=== PATIENT | female | born 1975 | race Caucasian/White ===

== ENCOUNTER 2019-10-14 08:55 | Day surgery (SDC) | payer BC ==
[2019-10-13 11:41] LABS: BLOOD UREA NITROGEN,BUN 12 mg/dL (7.0-18.0); CARBON DIOXIDE,CO2 29.4 mmol/L (21.0-32.0); CHLORIDE,CL 104 mmol/L (98-107); GLUCOSE RANDOM 66 mg/dL (74-106); POTASSIUM,K 4.3 mmol/L (3.5-5.1); SODIUM,NA 140 mmol/L (136-145)
[~2019-10-14 08:55] MED LIST: Lactated Ringers 1,000 ML IV SCH; Sodium Chloride 0.9% 10 ML SDV IV PRN; Sodium Chloride 0.9% 10 ML Syringe FLUSH PRN; Sodium Chloride 0.9% 2.5 ML Syringe FLUSH PRN; ceFAZolin 2 GM in Premix Bag 1 BAG IV ONE
--- NOTE | 2019-10-14 09:48 | PCM.PREANE ---
Preanesthetic Assessment - Anesthesia/Transfusion/Family Hx Anesthesia History: Prior Anesthesia Without Reaction Family History of Anesthesia Reaction: No Transfusion History: No Prior Transfusion(s) Intubation History: Unknown - Review of Systems General: No Symptoms Pulmonary: No Symptoms Cardiovascular: No Symptoms Gastrointestinal: No Symptoms Neurological: No Symptoms Other: Reports: None - Physical Assessment Vital Signs: Last Vital Signs Temp 36.5 C 10/14/19 09:13 Pulse 60 10/14/19 09:13 Resp 14 10/14/19 09:13 BP 128/80 10/14/19 09:13 Pulse Ox 100 10/14/19 09:13 Height: 5 ft 9 in Weight: 65.771 kg ASA Class: 2 Mental Status: Alert & Oriented x3 Airway Class: Mallampati = 1 Dentition: Reports: Normal Dentition (lower retainer) Thyro-Mental Finger Breadths: 3 Mouth Opening Finger Breadths: 3 ROM/Head Extension: Full Lungs: Clear to Auscultation, Normal Respiratory Effort Cardiovascular: Regular Rate, Regular Rhythm - Lab Values: Laboratory Last Values WBC 4.91 K/uL (4.0-11.0) 10/13/19 10:55 RBC 4.43 M/uL (4.30-5.90) 10/13/19 10:55 Hgb 13.3 g/dL (12.0-16.0) 10/13/19 10:55 Hct 38.9 % (36.0-46.0) 10/13/19 10:55 MCV 87.8 fL (80.0-98.0) 10/13/19 10:55 MCH 30.0 pg (27.0-32.0) 10/13/19 10:55 MCHC 34.2 g/dL (31.0-37.0) 10/13/19 10:55 RDW Std Deviation 39.8 fl (28.0-62.0) 10/13/19 10:55 RDW Coeff of Pat 12 % (11.0-15.0) 10/13/19 10:55 Plt Count 204 K/uL (150-400) 10/13/19 10:55 MPV 10.00 fL (7.40-12.00) 10/13/19 10:55 Nucleated RBC % 0.0 /100WBC 10/13/19 10:55 Nucleated RBCs # 0 K/uL 10/13/19 10:55 Sodium 140 mmol/L (136-145) 10/13/19 10:55 Potassium 4.3 mmol/L (3.5-5.1) 10/13/19 10:55 Chloride 104 mmol/L (98-107) 10/13/19 10:55 Carbon Dioxide 29.4 mmol/L (21.0-32.0) 10/13/19 10:55 BUN 12 mg/dL (7.0-18.0) 10/13/19 10:55 Creatinine 0.8 mg/dL (0.6-1.0) 10/13/19 10:55 Est Cr Clr Drug Dosing 93.18 mL/min 10/13/19 10:55 Estimated GFR (MDRD) > 60.0 ml/min 10/13/19 10:55 Glucose 66 mg/dL (74-106) L 10/13/19 10:55 Calcium 9.1 mg/dL (8.5-10.1) 10/13/19 10:55 HCG, Qual NEGATIVE (NEG) 10/13/19 10:55 Blood Type A POSITIVE 10/13/19 10:55 Antibody Screen NEGATIVE 10/13/19 10:55 - Allergies Allergies/Adverse Reactions: Allergies Allergy/AdvReac Type Severity Reaction Status Date / Time No Known Allergies Allergy Verified 10/14/19 09:32 - Blood Blood Available: No - Anesthesia Plan Pre-Op Medication Ordered: None - Acknowledgements Anesthesia Type Planned: General Anesthesia Pt an Appropriate Candidate for the Planned Anesthesia: Yes Alternatives and Risks of Anesthesia Discussed w Pt/Guardian: Yes Pt/Guardian Understands and Agrees with Anesthesia Plan: Yes PreAnesthesia Questionnaire HEENT History: Reports: None Cardiovascular History: Reports: None Respiratory History: Reports: None Gastrointestinal History: Reports: None Genitourinary History: Reports: Other (See Below) (s/p nephrectomy) 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: , Other (See Below) (ovarian cyst) Musculoskeletal History: Reports: Fracture Other Musculoskeletal History: hx fx patella and fx metatarsal rt foot Neurological History: Reports: Migraines Other Neuro History: migraines in the past Psychiatric History: Reports: Anxiety Endocrine/Metabolic History: Reports: None Hematologic History: Reports: None Immunologic History: Reports: None Oncologic (Cancer) History: Reports: None Dermatologic History: Reports: None - Past Surgical History Head Surgeries/Procedures: Reports: None HEENT Surgical History: Reports: None Cardiovascular Surgical History: Reports: None Respiratory Surgical History: Reports: None GI Surgical History: Reports: None Female Surgical History: Reports: Endometrial Ablation, Nephrectomy, Other ( See Below) Other Female Surgeries/Procedures: hx left nephrectomy, c/section x3, exploratory laparoscopy, thermal ablation Endocrine Surgical History: Reports: None Neurological Surgical History: Reports: None Musculoskeletal Surgical History: Reports: None Oncologic Surgical History: Reports: None Dermatological Surgical History: Reports: None - SUBSTANCE USE Smoking Status *Q: Former Smoker Tobacco Use Within Last Twelve Months: No Recreational Drug Use History: No - HOME MEDS Home Medications: Home Meds Cholecalciferol (Vitamin D3) [Vitamin D3] 25 mcg PO DAILY 10/08/19 [History] Anjali [place]/Linoleic/Gamoleni [Evening [place] 1,000 mg Sftg] 1 tab PO BEDTIME 10/08/19 [History] Multivitamin [Multivitamins] 1 tab PO DAILY 10/08/19 [History] - CURRENT (IN HOUSE) MEDS Current Meds: Current Medications Lactated Ringer's (Ringers, Lactated) 1,000 mls @ 125 mls/hr IV ASDIRECTED MARIA LUZ Last Admin: 10/14/19 09:17 Dose: 125 mls/hr Sodium Chloride (Saline Flush) 10 ml FLUSH ASDIRECTED PRN PRN Reason: Keep Vein Open Sodium Chloride (Saline Flush) 2.5 ml FLUSH ASDIRECTED PRN PRN Reason: Keep Vein Open Sodium Chloride (Normal Saline) 10 ml IV ASDIRECTED PRN PRN Reason: IV Use Discontinued Medications Cefazolin Sodium/Dextrose 2 gm (/ Premix) 50 mls @ 100 mls/hr IV ONETIME ONE Stop: 10/13/19 09:54
[2019-10-14] MEDS ORDERED: Atropine 0.1 MG/ML 10 ML Syringe IVPUSH PRN ×2 (10:36)
[2019-10-14] MEDS ORDERED: 50% Dextrose in Water 50 ML Syringe IVPUSH PRN (10:36)
[2019-10-14] MEDS ORDERED: EPINEPHrine 1:10,000 1 MG/10 ML Syringe IVPUSH PRN (10:36)
[2019-10-14] MEDS ORDERED: Naloxone 0.4 MG/ML Syringe IVPUSH PRN (10:36)
[2019-10-14] MEDS ORDERED: Albuterol 0.083% 2.5 MG/3 ML Neb Soln NEB PRN (10:36)
[2019-10-14] MEDS ORDERED: HYDROmorphone 1 MG/ML Syringe IVPUSH PRN (10:37)
[2019-10-14] MEDS ORDERED: HYDROmorphone 2 MG/ML Syringe IVPUSH PRN (11:00)
[2019-10-14] MEDS ORDERED: Fluorescein 5 ML Vial ONE (11:07)
[2019-10-14] MEDS ORDERED: Midazolam 1 MG/ML 2 ML SDV ONE (11:14)
[2019-10-14] MEDS ORDERED: fentaNYL 100 MCG/2 ML SDV ONE (11:14)
[2019-10-14] MEDS ORDERED: Rocuronium 100 MG/10 ML Syringe ONE (11:14)
[2019-10-14] MEDS ORDERED: Propofol 200 MG/20 ML SDV ONE (11:14)
[2019-10-14] MEDS ORDERED: Lidocaine 2% 100 MG/5 ML Syringe ONE (11:14)
[2019-10-14] MEDS ORDERED: ceFAZolin/Dextrose,Iso-Osmotic 2 GM/50 ML Duplex Bag IV ONE (11:18)
[2019-10-14] MEDS ORDERED: HYDROmorphone 2 MG/ML Syringe ONE (12:31)
[2019-10-14] MEDS ORDERED: Sugammadex Sodium 200 MG/2 ML VIAL ONE (13:30)
[2019-10-14] MEDS ORDERED: Octyl 2-Cyanoacrylate 1 Tube ONE (13:44)
[2019-10-14] MEDS ORDERED: Ketorolac 30 MG/ML SDV ONE (13:44)
[2019-10-14] MEDS ORDERED: Ondansetron 4 MG/2 ML SDV IVPUSH PRN (13:56)
[2019-10-14] MEDS ORDERED: Ketorolac 30 MG/ML SDV IVPUSH ONE (13:56)
[2019-10-14] MEDS ORDERED: Morphine 4 MG/ML Syringe IVPUSH PRN (13:56)
[2019-10-14] MEDS ORDERED: Acetaminophen/oxyCODONE 325-5 MG Tab PO PRN (13:56)
[2019-10-14] MEDS ORDERED: Promethazine 25 MG/ML SDV IM PRN (13:56)
--- NOTE | 2019-10-14 14:05 | PCM.OPNOTE ---
- General Post-Op/Procedure Note Date of Surgery/Procedure: 10/21/19 Operative Procedure(s): TLH,RSO,LS,asperation of L.breast cyst. and Cystoscopy. Pre Op Diagnosis: bleeding Post-Op Diagnosis: Same Anesthesia Technique: General ET Tube Primary Surgeon: Brian Goldman EBL in mLs: 100 Complications: None Condition: Good
[2019-10-14] MEDS: fentaNYL 100 MCG/2 ML SDV IVPUSH PRN ×2 (14:35→14:43)
[2019-10-14] MEDS: Ketorolac 30 MG/ML SDV IVPUSH PRN (20:45)
[2019-10-14] MEDS: Acetaminophen/oxyCODONE 325-5 MG Tab PO PRN (22:47)
[2019-10-15] MEDS: Acetaminophen/oxyCODONE 325-5 MG Tab PO PRN ×3 (02:49→12:17)
[2019-10-15] MEDS: Ketorolac 30 MG/ML SDV IVPUSH PRN (02:50)
[2019-10-15 06:26] LABS: BLOOD UREA NITROGEN,BUN 13 mg/dL (7.0-18.0); CARBON DIOXIDE,CO2 26.2 mmol/L (21.0-32.0); CHLORIDE,CL 106 mmol/L (98-107); GLUCOSE RANDOM 137 mg/dL (74-106); SODIUM,NA 142 mmol/L (136-145)
--- NOTE | 2019-10-15 07:17 | PCM48HPAN ---
Post Anesthesia Note - EVALUATION WITHIN 48HRS OF ANESTHETIC Vital Signs in Normal Range: Yes Patient Participated in Evaluation: Yes Respiratory Function Stable: Yes Airway Patent: Yes Cardiovascular Function Stable: Yes Hydration Status Stable: Yes Pain Control Satisfactory: Yes Nausea and Vomiting Control Satisfactory: Yes Mental Status Recovered: Yes Vital Signs: Last Vital Signs Temp 36.7 C 10/15/19 04:00 Pulse 68 10/15/19 04:00 Resp 16 10/15/19 04:00 BP 98/53 L 10/15/19 04:00 Pulse Ox 96 10/15/19 04:00
--- NOTE | 2019-10-15 08:51 | PCM.POSTAN ---
POST ANESTHESIA ASSESSMENT - MENTAL STATUS Mental Status: Alert, Oriented - VITAL SIGNS Vital Signs: Last Vital Signs Temp 36.7 C 10/15/19 04:00 Pulse 68 10/15/19 04:00 Resp 16 10/15/19 04:00 BP 98/53 L 10/15/19 04:00 Pulse Ox 96 10/15/19 04:00 - RESPIRATORY Respiratory Status: Respiratory Rate WNL, Airway Patent, O2 Saturation Stable - CARDIOVASCULAR CV Status: Pulse Rate WNL, Blood Pressure Stable - GASTROINTESTINAL GI Status: No Symptoms - PAIN Pain Score: 3 - POST OP HYDRATION Hydration Status: Adequate & Stable - OBSERVATIONS Free Text/Narrative:: No anesthesia problems
--- NOTE | 2019-10-15 08:57 | OR ---
SURGEON: Brian Goldman MD DATE OF PROCEDURE: 10/14/2019 PREOPERATIVE DIAGNOSES: Menometrorrhagia, dysmenorrhea, left breast cyst. POSTOPERATIVE DIAGNOSES: Menometrorrhagia, dysmenorrhea. OPERATIONS PERFORMED: Multiple puncture diagnostic laparoscopy, total laparoscopic hysterectomy, laparoscopic left salpingectomy, laparoscopic right salpingo-oophorectomy, aspiration of left breast cyst. PRIMARY SURGEON: Brian Goldman MD. LAY OUT MACHINE OPERATOR: OR tech. ANESTHESIA: General endotracheal intubation. ESTIMATED BLOOD LOSS: 100 mL. COMPLICATIONS: None. FINDINGS: Uterus is about 12-week size. There is a 5 cm cyst on the right ovary and the left ovary essentially is normal. INDICATIONS FOR SURGERY: [place] referred to the admit note. PROCEDURE IN DETAIL: The patient was brought to the OR, properly identified, and after adequate level of anesthesia, the patient was placed in lithotomy position, prepped and draped in sterile fashion as usual. With an access to the abdomen and the vagina, the [employer] manipulator placed in the uterus for manipulation and then the operation shifted abdominally. A stab wound done beneath the umbilicus. The Veress needle was placed in the peritoneal cavity and that cavity insufflated with 3 L of carbon dioxide, and then utilizing the Visiport technique, the peritoneal cavity was entered infraumbilically. 10/12 trocar placed in the left iliac fossa and 5 mm trocar in the right iliac fossa. The operation started by identifying the landmark of the anatomy, and using the Elliot Harmonic scalpel, the superior pedicle was taken and the left ovary preserved. The left tube and the right tube and ovary were removed with the specimen and then the broad ligament was coagulated, transected in the same manner, and then the anteriorly the broad ligament dissected downward medially, pushing the bladder completely away from the operative field. Then, using the Elliot Harmonic scalpel, a circular incision in the vaginal mucosa around the tip of the manipulator was done, detaching the cervix from its attachment to the vagina. The uterus and cervix and left tube and the right tube and ovary were removed vaginally and then pneumoperitoneum re - established by placing back the vaginal pack, and then the vaginal cuff was closed laparoscopically using 2-0 PDS interrupted sutures. While we were doing that, we asked the anesthesiologist to give the patient 5 mL of fluorescein and then cystoscopy was performed. The bladder was intact. The left ureter was identified and the dye coming from it, verifying the functioning of the kidney and the patency of the left kidney. The patient had previous right nephrectomy. Once we established that, then the cystoscope removed and the multiple laparoscopic incisions were closed with 2-0 Vicryl in layers. Instrument and sponge count was correct. The patient tolerated the procedure well, went to recovery room in stable general condition. After I finished with a hysterectomy procedure, attention is paid to the left breast and left breast cyst identified and localized with the 2 finger and then using a 22- gauge needle aspiration is performed and 8-9 mL of davonte-looking fluid is aspirated without any problem, and this cyst is no longer palpated after that. KACEY / LORAINE /[id number] MTDD
--- NOTE | 2019-10-15 09:17 | PCM.SURGPN ---
- General Info Date of Service: 10/15/19 POD#: 1 Functional Status: Reports: Pain Controlled - Review of Systems General: Reports: No Symptoms HEENT: Reports: No Symptoms Pulmonary: Reports: No Symptoms Cardiovascular: Reports: No Symptoms Gastrointestinal: Reports: No Symptoms Genitourinary: Reports: No Symptoms Musculoskeletal: Reports: No Symptoms Skin: Reports: No Symptoms Neurological: Reports: No Symptoms Psychiatric: Reports: No Symptoms - Patient Data Vitals - Most Recent: Last Vital Signs Temp 36.7 C 10/15/19 04:00 Pulse 68 10/15/19 04:00 Resp 16 10/15/19 04:00 BP 98/53 L 10/15/19 04:00 Pulse Ox 96 10/15/19 04:00 Weight - Most Recent: 65.771 kg I&O - Last 24 Hours: Intake & Output 10/14/19 10/15/19 10/15/19 22:59 06:59 14:59 Output Total 340 Balance -340 Lab Results Last 24 Hrs: Laboratory Results - last 24 hr 10/15/19 10/15/19 Range/Units 05:41 05:41 WBC 11.23 H (4.0-11.0) K/uL RBC 3.60 L (4.30-5.90) M/uL Hgb 10.9 L (12.0-16.0) g/dL Hct 31.6 L (36.0-46.0) % MCV 87.8 (80.0-98.0) fL MCH 30.3 (27.0-32.0) pg MCHC 34.5 (31.0-37.0) g/dL RDW Std Deviation 40.7 (28.0-62.0) fl RDW Coeff of Pat 13 (11.0-15.0) % Plt Count 185 (150-400) K/uL MPV 10.40 (7.40-12.00) fL Neut % (Auto) 67.2 (48.0-80.0) % Lymph % (Auto) 19.9 (16.0-40.0) % Rankin % (Auto) 12.7 (0.0-15.0) % Eos % (Auto) 0.1 (0.0-7.0) % Baso % (Auto) 0.1 (0.0-1.5) % Neut # (Auto) 7.6 H (1.4-5.7) K/uL Lymph # (Auto) 2.2 (0.6-2.4) K/uL Rankin # (Auto) 1.4 H (0.0-0.8) K/uL Eos # (Auto) 0.0 (0.0-0.7) K/uL Baso # (Auto) 0.0 (0.0-0.1) K/uL Nucleated RBC % 0.0 /100WBC Nucleated RBCs # 0 K/uL Sodium 142 (136-145) mmol/L Potassium 4.0 (3.5-5.1) mmol/L Chloride 106 (98-107) mmol/L Carbon Dioxide 26.2 (21.0-32.0) mmol/L BUN 13 (7.0-18.0) mg/dL Creatinine 0.8 (0.6-1.0) mg/dL Est Cr Clr Drug Dosing 93.18 mL/min Estimated GFR (MDRD) > 60.0 ml/min Glucose 137 H (74-106) mg/dL Calcium 7.9 L (8.5-10.1) mg/dL Med Orders - Current: Current Medications Albuterol (Proventil Neb Soln) 2.5 mg NEB ONETIME PRN PRN Reason: Wheezing Atropine Sulfate (Atropine 0.1 Mg/Ml) 0.5 mg IVPUSH ASDIRECTED PRN PRN Reason: Hypo-perfusion Atropine Sulfate (Atropine 0.1 Mg/Ml) 1 mg IVPUSH ASDIRECTED PRN PRN Reason: Hypo-Perfusion Dextrose/Water (Dextrose 50% In Water) 50 ml IVPUSH ASDIRECTED PRN PRN Reason: Hypoglycemia Epinephrine HCl (Epinephrine 1:10,000) 1 mg IVPUSH ASDIRECTED PRN PRN Reason: ACLS Guidelines Fentanyl (Sublimaze) 50 mcg IVPUSH Q5M PRN PRN Reason: Pain Last Admin: 10/14/19 14:43 Dose: 50 mcg Hydromorphone HCl (Dilaudid) 0.2 mg IVPUSH Q30M PRN PRN Reason: Breakthrough Pain Lactated Ringer's (Ringers, Lactated) 1,000 mls @ 125 mls/hr IV ASDIRECTED MARIA LUZ Last Admin: 10/14/19 09:17 Dose: 125 mls/hr Ketorolac Tromethamine (Toradol) 30 mg IVPUSH Q6H PRN PRN Reason: Pain (severe 7-10) Stop: 10/19/19 13:56 Last Admin: 10/15/19 02:50 Dose: 30 mg Morphine Sulfate (Morphine) 4 mg IVPUSH Q2H PRN PRN Reason: Pain (severe 7-10) Last Admin: 10/14/19 17:42 Dose: 4 mg Naloxone HCl (Narcan) 0.1 mg IVPUSH ASDIRECTED PRN PRN Reason: Respiratory Depression Ondansetron HCl (Zofran) 4 mg IVPUSH Q6H PRN PRN Reason: Nausea/Vomiting Last Admin: 10/14/19 16:06 Dose: 4 mg Oxycodone/Acetaminophen (Percocet 325-5 Mg) 1 tab PO Q4H PRN PRN Reason: Pain (moderate 4-6) Last Admin: 10/15/19 02:49 Dose: 1 tab Oxycodone/Acetaminophen (Percocet 325-5 Mg) 2 tab PO Q4H PRN PRN Reason: Pain (moderate 4-6) Promethazine HCl (Phenergan) 25 mg IM Q6H PRN PRN Reason: Nausea/Vomiting Sodium Chloride (Saline Flush) 10 ml FLUSH ASDIRECTED PRN PRN Reason: Keep Vein Open Sodium Chloride (Saline Flush) 2.5 ml FLUSH ASDIRECTED PRN PRN Reason: Keep Vein Open Sodium Chloride (Normal Saline) 10 ml IV ASDIRECTED PRN PRN Reason: IV Use Discontinued Medications Cefazolin Sodium/Dextrose (Ancef) Confirm Administered Dose 2 gm IV .STK-MED ONE Stop: 10/14/19 11:19 Fentanyl (Sublimaze) Confirm Administered Dose 100 mcg .ROUTE .STK-MED ONE Stop: 10/14/19 11:15 Fluorescein Sodium (Ak-Fluor) Confirm Administered Dose 5 ml .ROUTE .STK-MED ONE Stop: 10/14/19 11:08 Hydromorphone HCl (Dilaudid) 0.2 mg IVPUSH Q30M PRN PRN Reason: Breakthrough Pain Hydromorphone HCl (Dilaudid) Confirm Administered Dose 2 mg .ROUTE .STK-MED ONE Stop: 10/14/19 12:32 Cefazolin Sodium/Dextrose 2 gm (/ Premix) 50 mls @ 100 mls/hr IV ONETIME ONE Stop: 10/13/19 09:54 Acetaminophen (Ofirmev) Confirm Administered Dose 100 mls @ as directed .ROUTE .STK-MED ONE Stop: 10/14/19 11:08 Ketorolac Tromethamine (Toradol) Confirm Administered Dose 30 mg .ROUTE .STK- MED ONE Stop: 10/14/19 13:45 Ketorolac Tromethamine (Toradol) 30 mg IVPUSH ONETIME ONE Stop: 10/14/19 13:57 Lidocaine HCl (Xylocaine 2%) Confirm Administered Dose 100 mg .ROUTE .STK-MED ONE Stop: 10/14/19 11:15 Midazolam HCl (Versed 1 Mg/Ml) Confirm Administered Dose 2 mg .ROUTE .STK-MED ONE Stop: 10/14/19 11:15 Octyl Cyanoacrylate (Dermabond Advance) Confirm Administered Dose 1 applic .ROUTE .STK-MED ONE Stop: 10/14/19 13:45 Propofol (Diprivan 20 Ml) Confirm Administered Dose 200 mg .ROUTE .STK-MED ONE Stop: 10/14/19 11:15 Rocuronium [place] (Zemuron) Confirm Administered Dose 100 mg .ROUTE .STK-MED ONE Stop: 10/14/19 11:15 Sugammadex Sodium (Bridion) Confirm Administered Dose 200 mg .ROUTE .STK-MED ONE Stop: 10/14/19 13:31 - Exam Wound/Incisions: Healing Well General: Alert, Oriented HEENT: Pupils Equal Neck: Supple Lungs: Clear to Auscultation, Normal Respiratory Effort Cardiovascular: Regular Rate, Regular Rhythm GI/Abdominal Exam: Normal Bowel Sounds, Soft, Non-Tender, No Organomegaly, No Distention, No Abnormal Bruit, No Mass, Pelvis Stable Extremities: Normal Inspection, Normal Range of Motion, Non-Tender, No Pedal Edema, Normal Capillary Refill Skin: Warm, Dry, Intact Neurological: No New Focal Deficit Psy/Mental Status: Alert, Normal Affect, Normal Mood Sepsis Event Note - Evaluation Sepsis Screening Result: No Definite Risk - Focused Exam Vital Signs: Vital Signs Temp Pulse Resp BP Pulse Ox 10/15/19 04:00 36.7 C 68 16 98/53 L 96 10/15/19 00:14 95 14 103/56 L 96 Date Exam was Performed: 10/15/19 Time Exam was Performed: 09:15 - Problem List Review Problem List Initiated/Reviewed/Updated: Yes - My Orders Last 24 Hours: Active Orders 24 hr Category Date Time Status Patient Status [ADT] Routine ADT 10/14/19 13:56 Active Blood Glucose Check, Bedside [RC] PRN Care 10/14/19 10:36 Active Notify Provider Vital Signs [RC] ASDIRECTED Care 10/14/19 10:36 Active Oxygen Therapy [RC] PRN Care 10/14/19 10:36 Active RT Incentive Spirometry [RC] Q2HWA Care 10/14/19 13:56 Active Up With Assistance [RC] PER UNIT ROUTINE Care 10/14/19 13:56 Active Up ad Jade [RC] PER UNIT ROUTINE Care 10/14/19 13:56 Active Regular Diet [DIET] Diet 10/14/19 Dinner Active Acetaminophen/oxyCODONE [Percocet 325-5 MG] Med 10/14/19 13:56 Active 1 tab PO Q4H PRN Acetaminophen/oxyCODONE [Percocet 325-5 MG] Med 10/14/19 13:56 Active 2 tab PO Q4H PRN Albuterol [Proventil Neb Soln] Med 10/14/19 10:36 Active 2.5 mg NEB ONETIME PRN Atropine [Atropine 0.1 MG/ML] Med 10/14/19 10:36 Active 0.5 mg IVPUSH ASDIRECTED PRN Atropine [Atropine 0.1 MG/ML] Med 10/14/19 10:36 Active 1 mg IVPUSH ASDIRECTED PRN Dextrose 50% in Water Med 10/14/19 10:36 Active 50 ml IVPUSH ASDIRECTED PRN EPINEPHrine [EPINEPHrine 1:10,000] Med 10/14/19 10:36 Active 1 mg IVPUSH ASDIRECTED PRN HYDROmorphone [Dilaudid] Med 10/14/19 11:00 Active 0.2 mg IVPUSH Q30M PRN Ketorolac [Toradol] Med 10/14/19 13:56 Active 30 mg IVPUSH Q6H PRN Morphine Med 10/14/19 13:56 Active 4 mg IVPUSH Q2H PRN Naloxone [Narcan] Med 10/14/19 10:36 Active 0.1 mg IVPUSH ASDIRECTED PRN Ondansetron [Zofran] Med 10/14/19 13:56 Active 4 mg IVPUSH Q6H PRN Promethazine [Phenergan] Med 10/14/19 13:56 Active 25 mg IM Q6H PRN fentaNYL [Sublimaze] Med 10/14/19 10:36 Active 50 mcg IVPUSH Q5M PRN Peripheral IV Discontinue [OM.PC] Routine Oth 10/14/19 13:56 Ordered Sequential Compression Device [OM.PC] Per Unit Routine Oth 10/14/19 13:56 Ordered Resuscitation Status Routine Resus Stat 10/14/19 13:56 Ordered Medication Orders Albuterol (Proventil Neb Soln) 2.5 mg NEB ONETIME PRN PRN Reason: Wheezing Atropine Sulfate (Atropine 0.1 Mg/Ml) 0.5 mg IVPUSH ASDIRECTED PRN PRN Reason: Hypo-perfusion Atropine Sulfate (Atropine 0.1 Mg/Ml) 1 mg IVPUSH ASDIRECTED PRN PRN Reason: Hypo-Perfusion Dextrose/Water (Dextrose 50% In Water) 50 ml IVPUSH ASDIRECTED PRN PRN Reason: Hypoglycemia Epinephrine HCl (Epinephrine 1:10,000) 1 mg IVPUSH ASDIRECTED PRN PRN Reason: ACLS Guidelines Fentanyl (Sublimaze) 50 mcg IVPUSH Q5M PRN PRN Reason: Pain Last Admin: 10/14/19 14:43 Dose: 50 mcg Admin: 10/14/19 14:35 Dose: 50 mcg Hydromorphone HCl (Dilaudid) 0.2 mg IVPUSH Q30M PRN PRN Reason: Breakthrough Pain Lactated Ringer's (Ringers, Lactated) 1,000 mls @ 125 mls/hr IV ASDIRECTED MARIA LUZ Last Admin: 10/14/19 09:17 Dose: 125 mls/hr Ketorolac Tromethamine (Toradol) 30 mg IVPUSH Q6H PRN PRN Reason: Pain (severe 7-10) Stop: 10/19/19 13:56 Last Admin: 10/15/19 02:50 Dose: 30 mg Admin: 10/14/19 20:45 Dose: 30 mg Morphine Sulfate (Morphine) 4 mg IVPUSH Q2H PRN PRN Reason: Pain (severe 7-10) Last Admin: 10/14/19 17:42 Dose: 4 mg Naloxone HCl (Narcan) 0.1 mg IVPUSH ASDIRECTED PRN PRN Reason: Respiratory Depression Ondansetron HCl (Zofran) 4 mg IVPUSH Q6H PRN PRN Reason: Nausea/Vomiting Last Admin: 10/14/19 16:06 Dose: 4 mg Oxycodone/Acetaminophen (Percocet 325-5 Mg) 1 tab PO Q4H PRN PRN Reason: Pain (moderate 4-6) Last Admin: 10/15/19 02:49 Dose: 1 tab Admin: 10/14/19 22:47 Dose: 1 tab Oxycodone/Acetaminophen (Percocet 325-5 Mg) 2 tab PO Q4H PRN PRN Reason: Pain (moderate 4-6) Promethazine HCl (Phenergan) 25 mg IM Q6H PRN PRN Reason: Nausea/Vomiting Sodium Chloride (Saline Flush) 10 ml FLUSH ASDIRECTED PRN PRN Reason: Keep Vein Open Sodium Chloride (Saline Flush) 2.5 ml FLUSH ASDIRECTED PRN PRN Reason: Keep Vein Open Sodium Chloride (Normal Saline) 10 ml IV ASDIRECTED PRN PRN Reason: IV Use - Assessment Assessment (Free Text/Narrative):: Status post laparoscopic hysterectomy name patient is doing well on regular diet on the left. Voiding without any problem incision is clean and postoperative pain is under control - Plan Plan (Free Text/Narrative):: The patient will be discharged home today. The post hysterectomy instruction is given to the patient she was given a prescription of [place] 5/325 for postoperative pain at home there is no restriction on her diet she have an appointment to see me in the office in one week
--- NOTE | 2019-10-15 09:22 | PCM.DCSUM1 ---
Discharge Summary - Hospital Course Diagnosis: Stroke: No - Discharge Data Discharge Date: 10/15/19 Discharge Disposition: Home, Self-Care 01 Condition: Good - Referral to Home Health Primary Care Physician: PCP None - Patient Summary/Data Operative Procedure(s) Performed: TLH,RSO,LS,asperation of L.breast cyst. and Cystoscopy. - Patient Instructions Diet: Usual Diet as Tolerated Activity: As Tolerated Driving: Do Not Drive Showering/Bathing: May Shower - Discharge Plan Home Medications: Home Meds Cholecalciferol (Vitamin D3) [Vitamin D3] 25 mcg PO DAILY 10/08/19 [History] Anjali [place]/Linoleic/Gamoleni [Evening [place] 1,000 mg Sftg] 1 tab PO BEDTIME 10/08/19 [History] Multivitamin [Multivitamins] 1 tab PO DAILY 10/08/19 [History] Referrals: [facility] [Outside] Brian Goldman MD [Physician] - (1 week- October 22@1:30pm w/ 6 week- November 26@1:30pm w/ ) - Discharge Summary/Plan Comment DC Time >30 min.: Yes - General Info Date of Service: 10/15/19 Functional Status: Reports: Pain Controlled - Review of Systems General: Reports: No Symptoms HEENT: Reports: No Symptoms Pulmonary: Reports: No Symptoms Cardiovascular: Reports: No Symptoms Gastrointestinal: Reports: No Symptoms Genitourinary: Reports: No Symptoms Musculoskeletal: Reports: No Symptoms Skin: Reports: No Symptoms Neurological: Reports: No Symptoms Psychiatric: Reports: No Symptoms - Patient Data Vitals - Most Recent: Last Vital Signs Temp 36.7 C 10/15/19 04:00 Pulse 68 10/15/19 04:00 Resp 16 10/15/19 04:00 BP 98/53 L 10/15/19 04:00 Pulse Ox 96 10/15/19 04:00 Weight - Most Recent: 65.771 kg I&O - Last 24 hours: Intake & Output 10/14/19 10/15/19 10/15/19 22:59 06:59 14:59 Output Total 340 Balance -340 Lab Results - Last 24 hrs: Laboratory Results - last 24 hr 10/15/19 10/15/19 Range/Units 05:41 05:41 WBC 11.23 H (4.0-11.0) K/uL RBC 3.60 L (4.30-5.90) M/uL Hgb 10.9 L (12.0-16.0) g/dL Hct 31.6 L (36.0-46.0) % MCV 87.8 (80.0-98.0) fL MCH 30.3 (27.0-32.0) pg MCHC 34.5 (31.0-37.0) g/dL RDW Std Deviation 40.7 (28.0-62.0) fl RDW Coeff of Pat 13 (11.0-15.0) % Plt Count 185 (150-400) K/uL MPV 10.40 (7.40-12.00) fL Neut % (Auto) 67.2 (48.0-80.0) % Lymph % (Auto) 19.9 (16.0-40.0) % [place] % (Auto) 12.7 (0.0-15.0) % Eos % (Auto) 0.1 (0.0-7.0) % Baso % (Auto) 0.1 (0.0-1.5) % Neut # (Auto) 7.6 H (1.4-5.7) K/uL Lymph # (Auto) 2.2 (0.6-2.4) K/uL [place] # (Auto) 1.4 H (0.0-0.8) K/uL Eos # (Auto) 0.0 (0.0-0.7) K/uL Baso # (Auto) 0.0 (0.0-0.1) K/uL Nucleated RBC % 0.0 /100WBC Nucleated RBCs # 0 K/uL Sodium 142 (136-145) mmol/L Potassium 4.0 (3.5-5.1) mmol/L Chloride 106 (98-107) mmol/L Carbon Dioxide 26.2 (21.0-32.0) mmol/L BUN 13 (7.0-18.0) mg/dL Creatinine 0.8 (0.6-1.0) mg/dL Est Cr Clr Drug Dosing 93.18 mL/min Estimated GFR (MDRD) > 60.0 ml/min Glucose 137 H (74-106) mg/dL Calcium 7.9 L (8.5-10.1) mg/dL Med Orders - Current: Current Medications Albuterol (Proventil Neb Soln) 2.5 mg NEB ONETIME PRN PRN Reason: Wheezing Atropine Sulfate (Atropine 0.1 Mg/Ml) 0.5 mg IVPUSH ASDIRECTED PRN PRN Reason: Hypo-perfusion Atropine Sulfate (Atropine 0.1 Mg/Ml) 1 mg IVPUSH ASDIRECTED PRN PRN Reason: Hypo-Perfusion Dextrose/Water (Dextrose 50% In Water) 50 ml IVPUSH ASDIRECTED PRN PRN Reason: Hypoglycemia Epinephrine HCl (Epinephrine 1:10,000) 1 mg IVPUSH ASDIRECTED PRN PRN Reason: ACLS Guidelines Fentanyl (Sublimaze) 50 mcg IVPUSH Q5M PRN PRN Reason: Pain Last Admin: 10/14/19 14:43 Dose: 50 mcg Hydromorphone HCl (Dilaudid) 0.2 mg IVPUSH Q30M PRN PRN Reason: Breakthrough Pain Lactated Ringer's (Ringers, Lactated) 1,000 mls @ 125 mls/hr IV ASDIRECTED MARIA LUZ Last Admin: 10/14/19 09:17 Dose: 125 mls/hr Ketorolac Tromethamine (Toradol) 30 mg IVPUSH Q6H PRN PRN Reason: Pain (severe 7-10) Stop: 10/19/19 13:56 Last Admin: 10/15/19 02:50 Dose: 30 mg Morphine Sulfate (Morphine) 4 mg IVPUSH Q2H PRN PRN Reason: Pain (severe 7-10) Last Admin: 10/14/19 17:42 Dose: 4 mg Naloxone HCl (Narcan) 0.1 mg IVPUSH ASDIRECTED PRN PRN Reason: Respiratory Depression Ondansetron HCl (Zofran) 4 mg IVPUSH Q6H PRN PRN Reason: Nausea/Vomiting Last Admin: 10/14/19 16:06 Dose: 4 mg Oxycodone/Acetaminophen (Percocet 325-5 Mg) 1 tab PO Q4H PRN PRN Reason: Pain (moderate 4-6) Last Admin: 10/15/19 09:15 Dose: 1 tab Oxycodone/Acetaminophen (Percocet 325-5 Mg) 2 tab PO Q4H PRN PRN Reason: Pain (moderate 4-6) Promethazine HCl (Phenergan) 25 mg IM Q6H PRN PRN Reason: Nausea/Vomiting Sodium Chloride (Saline Flush) 10 ml FLUSH ASDIRECTED PRN PRN Reason: Keep Vein Open Sodium Chloride (Saline Flush) 2.5 ml FLUSH ASDIRECTED PRN PRN Reason: Keep Vein Open Sodium Chloride (Normal Saline) 10 ml IV ASDIRECTED PRN PRN Reason: IV Use Discontinued Medications Cefazolin Sodium/Dextrose (Ancef) Confirm Administered Dose 2 gm IV .STK-MED ONE Stop: 10/14/19 11:19 Fentanyl (Sublimaze) Confirm Administered Dose 100 mcg .ROUTE .STK-MED ONE Stop: 10/14/19 11:15 Fluorescein Sodium (Ak-Fluor) Confirm Administered Dose 5 ml .ROUTE .STK-MED ONE Stop: 10/14/19 11:08 Hydromorphone HCl (Dilaudid) 0.2 mg IVPUSH Q30M PRN PRN Reason: Breakthrough Pain Hydromorphone HCl (Dilaudid) Confirm Administered Dose 2 mg .ROUTE .STK-MED ONE Stop: 10/14/19 12:32 Cefazolin Sodium/Dextrose 2 gm (/ Premix) 50 mls @ 100 mls/hr IV ONETIME ONE Stop: 10/13/19 09:54 Acetaminophen (Ofirmev) Confirm Administered Dose 100 mls @ as directed .ROUTE .STK-MED ONE Stop: 10/14/19 11:08 Ketorolac Tromethamine (Toradol) Confirm Administered Dose 30 mg .ROUTE .STK- MED ONE Stop: 10/14/19 13:45 Ketorolac Tromethamine (Toradol) 30 mg IVPUSH ONETIME ONE Stop: 10/14/19 13:57 Lidocaine HCl (Xylocaine 2%) Confirm Administered Dose 100 mg .ROUTE .STK-MED ONE Stop: 10/14/19 11:15 Midazolam HCl (Versed 1 Mg/Ml) Confirm Administered Dose 2 mg .ROUTE .STK-MED ONE Stop: 10/14/19 11:15 Octyl Cyanoacrylate (Dermabond Advance) Confirm Administered Dose 1 applic .ROUTE .STK-MED ONE Stop: 10/14/19 13:45 Propofol (Diprivan 20 Ml) Confirm Administered Dose 200 mg .ROUTE .STK-MED ONE Stop: 10/14/19 11:15 Rocuronium [place] (Zemuron) Confirm Administered Dose 100 mg .ROUTE .STK-MED ONE Stop: 10/14/19 11:15 Sugammadex Sodium ([place]) Confirm Administered Dose 200 mg .ROUTE .STK-MED ONE Stop: 10/14/19 13:31 - Exam General: Reports: Alert, Oriented HEENT: Reports: Pupils Equal, Pupils Reactive, EOMI, Mucous Membr. Moist/[place] Neck: Reports: Supple Lungs: Reports: Clear to Auscultation, Normal Respiratory Effort Cardiovascular: Reports: Regular Rate, Regular Rhythm GI/Abdominal Exam: Normal Bowel Sounds, Soft, Non-Tender, No Organomegaly, No Distention, No Abnormal Bruit, No Mass, Pelvis Stable (Female) Exam: Normal External Exam, Normal Speculum Exam, Normal Bimanual Exam Rectal (Female) Exam: Normal Exam, Normal Rectal Tone Back Exam: Reports: Normal Inspection, Full Range of Motion Extremities: Normal Inspection, Normal Range of Motion, Non-Tender, No Pedal Edema, Normal Capillary Refill Skin: Reports: Warm, Dry, Intact Wound/Incisions: Reports: Healing Well Neurological: Reports: No New Focal Deficit Psy/Mental Status: Reports: Alert, Normal Affect, Normal Mood
== END 2019-10-15 12:28 | disposition home or self-care (01) ==
LOC: MW.SDS 08:55 → MW.OB 15:19 → MW.SDS 10-15 12:28
PROVIDERS: ATTEND Obstetrics & Gynecology
DX: D25.1 Intramural leiomyoma of uterus (principal); D25.2 Subserosal leiomyoma of uterus; N60.02 Solitary cyst of left breast; N87.9 Dysplasia of cervix uteri, unspecified; N83.01 Follicular cyst of right ovary; G43.909 Migraine, unspecified, not intractable, without status migrainosus; F41.9 Anxiety disorder, unspecified; Z87.891 Personal history of nicotine dependence
CPT/HCPCS: 19000; 36415; 58571; 80048; 84703; 85025; 85027; 86850; 86900; 86901; A9270; J0131; J0690; J1170; J1885; J2001; J2250; J2270; J2405; J2704; J3010; J3490; J7120

== ENCOUNTER 2019-10-30 23:29 | Observation (INO) | payer BC ==
[2019-10-30] MEDS ORDERED: Ondansetron 4 MG/2 ML SDV IVPUSH ONE (23:53)
--- NOTE | 2019-10-31 00:10 | EDM.PDOC ---
ED HPI GENERAL MEDICAL PROBLEM - General Chief Complaint: ARTERIAL EMBALMER Problem Stated Complaint: BLEEDING Time Seen by Provider: 10/30/19 23:47 Source of Information: Reports: Patient, Family History Limitations: Reports: No Limitations - History of Present Illness INITIAL COMMENTS - FREE TEXT/NARRATIVE: LEATHA HPI: This is a 43-year-old female who on October 14 had a hysterectomy and right oophorectomy. 1 hour prior to presentation tonight the patient started having vaginal bleeding passing clots the size of golf balls and has soaked several pads. She is having some slight nausea and lightheadedness. She was not having any intercourse prior to the onset of bleeding. PMHX/PSHX: Hysterectomy and right oophorectomy Social History: Negative for tobacco, negative for alcohol, negative for street drugs or marijuana Family history: Hypertension ROS: See Chart PE: VS see chart General: No apparent distress Head: Atraumatic normocephalic no lumps bumps or bruises Eyes: EOMI PERRLA Ears: TMs intact no hemotympanum no signs of infection no mastoid tenderness Nose: No epistaxis nares patent no septal wall hematoma Throat: No pharyngeal erythema or exudate no tonsillar enlargement Neck: Supple, no cervical lymphadenopathy Chest wall: No point tenderness Heart: Regular rate and rhythm without murmur gallop or rub Lungs: Clear to auscultation and percussion without rales rhonchi or wheeze Abdomen: Soft nontender nondistended without guarding rigidity or rebound Neck: No spinal point tenderness full range of motion in all 6 directions Back: No spinal paraspinal or CVA tenderness Extremities: full rom through out. no effusions skin: Warm dry intact no rashes is slightly pale. Pelvic: External vegetated external genitalia are normal. Patient has a baseball sized dark blood clot in her vaginal vault. I do not see any significant hemorrhage. There is a further clot adhered to her cuff. Exam is very tender. MDM: Differential diagnosis:Wound dehiscence coagulopathy anemia ED course: Patient was placed in a stretcher and was immediately evaluated by myself. She did not appear to be in any acute distress. She was taken to a room with a pelvic bed and a pelvic exam was performed which showed a copious amount of clotted blood. Patient was given morphine and Zofran for nausea and pain. Case was discussed with her operating compound coating machine offbearer to assess to admit the patient on serial H&H's. Patient given IV fluids and antiemetics. Stable for admission to the floor Diagnosis: post Operative bleeding Disposition: Admit - Related Data Allergies Allergy/AdvReac Type Severity Reaction Status Date / Time No Known Allergies Allergy Verified 10/30/19 23:47 Home Meds: Home Meds Cholecalciferol (Vitamin D3) [Vitamin D3] 25 mcg PO DAILY 10/08/19 [History] Anjali [place]/Linoleic/Gamoleni [Evening [place] 1,000 mg Sftg] 1 tab PO BEDTIME 10/08/19 [History] Multivitamin [Multivitamins] 1 tab PO DAILY 10/08/19 [History] Past Medical History HEENT History: Reports: None Cardiovascular History: Reports: None Respiratory History: Reports: None Gastrointestinal History: Reports: None Genitourinary History: Reports: Other (See Below) (s/p nephrectomy) ARTERIAL EMBALMER History: Reports: , Other (See Below) (ovarian cyst) Musculoskeletal History: Reports: Fracture Other Musculoskeletal History: hx fx patella and fx metatarsal rt foot Neurological History: Reports: Migraines Other Neuro History: migraines in the past Psychiatric History: Reports: Anxiety Endocrine/Metabolic History: Reports: None Hematologic History: Reports: None Immunologic History: Reports: None Oncologic (Cancer) History: Reports: None Dermatologic History: Reports: None - Past Surgical History Head Surgeries/Procedures: Reports: None HEENT Surgical History: Reports: None Cardiovascular Surgical History: Reports: None Respiratory Surgical History: Reports: None GI Surgical History: Reports: None Female Surgical History: Reports: Endometrial Ablation, Nephrectomy, Other ( See Below) Other Female Surgeries/Procedures: hx left nephrectomy, c/section x3, exploratory laparoscopy, thermal ablation Endocrine Surgical History: Reports: None Neurological Surgical History: Reports: None Musculoskeletal Surgical History: Reports: None Oncologic Surgical History: Reports: None Dermatological Surgical History: Reports: None ED ROS GENERAL - Review of Systems Review Of Systems: See Below Constitutional: Reports: No Symptoms HEENT: Reports: No Symptoms Respiratory: Reports: No Symptoms Cardiovascular: Reports: No Symptoms Endocrine: Reports: No Symptoms GI/Abdominal: Reports: No Symptoms : Reports: Pain Musculoskeletal: Reports: No Symptoms Skin: Reports: No Symptoms Neurological: Reports: No Symptoms ED EXAM, RENAL/ - Physical Exam Exam: See Below (My H&P) Course - Vital Signs Last Recorded V/S: Last Vital Signs Temp 36.2 C 10/30/19 23:43 Pulse 111 H 10/30/19 23:43 Resp 18 10/30/19 23:43 BP 98/69 10/30/19 23:43 Pulse Ox 99 10/30/19 23:43 - Orders/Labs/Meds Orders: Active Orders 24 hr Category Date Time Status Admission Status [Patient Status] [ADT] Stat ADT 10/31/19 00:33 Ordered CBC WITH AUTO DIFF [HEME] Stat Lab 10/30/19 23:51 Results COMPREHENSIVE METABOLIC PN,CMP [CHEM] Stat Lab 10/30/19 23:51 Received TYPE AND SCREEN [BBK] Stat Lab 10/30/19 23:51 Received Saline Lock Insert [OM.PC] Stat Oth 10/30/19 23:58 Ordered Labs: Laboratory Tests 10/31/19 10/31/19 Range/Units 00:01 00:01 WBC 8.24 (4.0-11.0) K/uL RBC 3.08 L (4.30-5.90) M/uL Hgb 9.3 L (12.0-16.0) g/dL Hct 27.0 L (36.0-46.0) % MCV 87.7 (80.0-98.0) fL MCH 30.2 (27.0-32.0) pg MCHC 34.4 (31.0-37.0) g/dL RDW Std Deviation 39.0 (28.0-62.0) fl RDW Coeff of Pat 12 (11.0-15.0) % Plt Count 275 (150-400) K/uL MPV 9.60 (7.40-12.00) fL Add Manual Diff YES Nucleated RBC % 0.0 /100WBC Nucleated RBCs # 0 K/uL INR 1.03 Meds: Medications Discontinued Medications Generic Name Dose Route Start Last Admin Trade Name Freq PRN Reason Stop Dose Admin Morphine Sulfate 4 mg 10/31/19 00:33 Morphine IVPUSH 10/31/19 00:34 ONETIME ONE Ondansetron HCl 4 mg 10/30/19 23:53 10/31/19 00:19 Zofran IVPUSH 10/30/19 23:54 4 mg ONETIME ONE Administration Departure - Departure Time of Disposition: 00:39 Disposition: Refer to Observation Clinical Impression: Post-operative hemorrhage Qualifiers: Surgical complication system/body Area: genitourinary Procedure type: genitourinary Qualified Code(s): N99.820 - Postprocedural hemorrhage of a genitourinary system organ or structure following a genitourinary system procedure - Discharge Information Referrals: PCP,None [Primary Care Provider] - Forms: ED Department Discharge Sepsis Event Note - Evaluation Sepsis Screening Result: No Definite Risk - Focused Exam Vital Signs: Vital Signs Temp Pulse Resp BP Pulse Ox 10/30/19 23:43 36.2 C 111 H 18 98/69 99 Date Exam was Performed: 10/31/19 Time Exam was Performed: 00:36 - My Orders Last 24 Hours: My Active Orders 10/30/19 23:51 CBC WITH AUTO DIFF [HEME] Stat COMPREHENSIVE METABOLIC PN,CMP [CHEM] Stat TYPE AND SCREEN [BBK] Stat 10/30/19 23:58 Saline Lock Insert [OM.PC] Stat 10/31/19 00:33 Admission Status [Patient Status] [ADT] Stat - Assessment/Plan Last 24 Hours: My Active Orders 10/30/19 23:51 CBC WITH AUTO DIFF [HEME] Stat COMPREHENSIVE METABOLIC PN,CMP [CHEM] Stat TYPE AND SCREEN [BBK] Stat 10/30/19 23:58 Saline Lock Insert [OM.PC] Stat 10/31/19 00:33 Admission Status [Patient Status] [ADT] Stat
[2019-10-31] MEDS ORDERED: Morphine 4 MG/ML Syringe IVPUSH ONE (00:33)
[2019-10-31 00:42] LABS: BLOOD UREA NITROGEN,BUN 19 mg/dL (7.0-18.0); CARBON DIOXIDE,CO2 27.3 mmol/L (21.0-32.0); CHLORIDE,CL 107 mmol/L (98-107); GLUCOSE RANDOM 117 mg/dL (74-106); POTASSIUM,K 3.5 mmol/L (3.5-5.1); SODIUM,NA 143 mmol/L (136-145)
--- NOTE | 2019-10-31 18:14 | CONS ---
DATE OF CONSULTATION: DATE OF : 1975 PRIMARY CARE PHYSICIAN: None PCP REFERRING PHYSICIAN: Brian Goldman MD Ms. Stevenson is 43 years old. She is status post total laparoscopic hysterectomy 2-1/2 weeks ago. She had uncomplicated surgery. I seen her one visit postoperatively in the office. She came today to the emergency room complaining of vaginal bleeding. She was evaluated there and the patient was having vaginal bleeding with clotting. I admitted her for observation. Her hematocrit is stabilized. The patient is not orthostatic or hypotensive. When I interviewed her this morning, the patient stated that she is not in pain and she has minimal amount of bleeding right now. I went ahead and did a speculum examination. The vagina is normal. There is very few blood clot at the vaginal cuff. I removed them without any problem. The vaginal cuff is intact and there is no active bleeding. Theorizing this bleeding, probably it was from the vaginal cuff. However, it is not actively bleeding right now. My plan is to send the patient home, put her on bedrest and have her take iron pills, and I am going to see her in one week in the office and evaluate her status. I also instructed the patient if she starts bleeding again, she can come either to the office directly or to the emergency room. The post hysterectomy instruction is repeated to the patient. KACEY / LORAINE /[id number]
== END 2019-10-31 10:41 | disposition home or self-care (01) ==
LOC: MW.ED 23:29 → MW.OB 10-31 00:46
PROVIDERS: ADMIT Obstetrics & Gynecology; ATTEND Obstetrics & Gynecology
DX: N99.820 Postprocedural hemorrhage of a genitourinary system organ or structure following a genitourinary system procedure (principal); G43.909 Migraine, unspecified, not intractable, without status migrainosus; Z90.710 Acquired absence of both cervix and uterus; Z90.721 Acquired absence of ovaries, unilateral
CPT/HCPCS: 36415; 80053; 85014; 85018; 85025; 85610; 86850; 86900; 86901; J2270; J2405; 96374; 96375; 99283; 99284-25; G0378